=== PATIENT | female | born 1985 | race Caucasian/White ===

== ENCOUNTER 2016-09-15 08:32 | Day surgery (SDC) | payer OTHER ==
[~2016-09-15 08:32] MED LIST: LIDOCAINE W/ SODIUM BICARB 0.5 ML SYR ONE; Lactated Ringers 1,000 ML PRIMARY IV ONE
[2016-09-15 08:56] LABS: URINE SPECIFIC GRAVITY - MAN 1.014
[2016-09-15] MEDS ORDERED: ONDANSETRON 4 MG/2 ML VIAL ONE (09:49)
[2016-09-15] MEDS ORDERED: DEXAMETHASONE PF 10 MG/1 ML VIAL ONE (09:50)
[2016-09-15] MEDS ORDERED: fentaNYL Inj 250 MCG/5 ML VIAL ONE (09:54)
[2016-09-15] MEDS ORDERED: MIDAZOLAM 5 MG/1 ML ONE (09:54)
[2016-09-15] MEDS ORDERED: LIDOCAINE MPF 2% - 5 ML (20 MG/1 ML) ONE (09:54)
[2016-09-15] MEDS ORDERED: KETOROLAC 30 MG/1 ML VIAL ONE (10:17)
[2016-09-15] MEDS ORDERED: IBUPROFEN 800 MG TABLET PO PRN (10:21)
[2016-09-15] MEDS ORDERED: NORMAL SALINE 10 ML SYRINGE FLUSH IVP PRN (10:21)
[2016-09-15] MEDS ORDERED: HYDROcodone-APAP 5 MG -325 MG TABLET PO PRN (10:21)
--- NOTE | 2016-09-15 10:25 | OB.OP.NOTE ---
Operative Report Surgeon: Wilson Anesthesia Type: General Anesthesia Provider: Maciel Polk CRNA Surgery Date: 09/15/16 Preoperative Diagnosis: LUCRECIA-2 Postoperative Diagnosis: Same Procedure: Large loop excision of the transformation zone Estimated Blood Loss (mL): 5 Fluids: 1000 ml Complications: None Findings at Surgery: Decreased uptake of Lugol's on both the posterior lip and the anterior lip of the cervix Indications for the Procedure: LUCRECIA-2 of the cervix Description of Procedure: The patient was taken to the operating room and placed supine where general laryngeal mask anesthesia was administered. She was placed in lithotomy position in Luke stirrups. A coated bivalve speculum was placed in the vagina and a coated sidewall retractor was placed thus isolating the cervix. Lugol's solution was applied to the cervix with findings as noted above. A 2 cm loop electrode at 50 W cutting cautery power was used to excise the posterior lip of the cervix followed by the anterior lip of the cervix and a small portion of the cervical os. An ECC was then performed. Ball cautery was then used at 50 W cut like power to cauterize the LEEP bed which resulted in good hemostasis. Monsel solution was then applied for additional hemostasis. The retractors were then removed. There were no complications at surgery and the patient left to recovery in good condition. Plan: Routine postop care and discharge to home.
[2016-09-15 11:28] VITALS: TEMP 97.4
[2016-09-15 12:30] VITALS: RESP 16
== END 2016-09-15 11:46 | disposition home or self-care (01) ==
LOC: SDSC 08:32
PROVIDERS: ATTEND Obstetrics & Gynecology
DX: N87.1 Moderate cervical dysplasia (principal)
CPT/HCPCS: 57522; 84703; J1885; J2704; J3010; J1100; J2001; J2250; J2405; J7120